=== PATIENT | male | born 1945 | race Caucasian/White ===

== ENCOUNTER 2020-07-15 09:28 | Emergency (ER) | payer MEDICARE, OTHER ==
[~2020-07-15] VITALS: Ht 172.7 cm; Wt 57.1 kg
[~2020-07-15 09:28] MED LIST: ASPI325T17 PO; ATEN25TA PO; INDO25CA22 PO; ISOS20TA3 PO; LOVA40TA2 PO
[2020-07-15 09:36] VITALS: BP 146/77
[2020-07-15] MEDS ORDERED: PHENYLEPHRINE NASAL 1%, 15ML SPRAY ONE (09:52)
[2020-07-15] MEDS ORDERED: LIDOCAINE-MPF 1%, 5ML ONE (09:52)
[2020-07-15] MEDS ORDERED: SILVER NITRATE STICK TP ONE (09:58)
--- NOTE | 2020-07-15 10:55 | NUR ---
PT AMBULATED ED HALLWAY'S WITH NO NEW EPITAXIS.
== END 2020-07-15 11:09 | disposition home or self-care (01) ==
LOC: ED 10:57
DX: R04.0 Epistaxis (principal); I10 Essential (primary) hypertension
CPT/HCPCS: 30901; 99284

== ENCOUNTER 2020-07-28 09:38 | Emergency (ER) | payer MEDICARE ==
[~2020-07-28] VITALS: Ht 172.7 cm; Wt 57.5 kg
[2020-07-28 09:41] VITALS: BP 180/72
[2020-07-28] MEDS ORDERED: TRANEXAMIC ACID 100 MG/ML, 10ML ONE (09:59)
[2020-07-28] MEDS ORDERED: PHENYLEPHRINE NASAL 1%, 15ML SPRAY ONE (10:00)
[2020-07-28] MEDS ORDERED: TRANEXAMIC ACID 100 MG/ML, 10ML TP ONE (10:00)
[2020-07-28] MEDS ORDERED: PHENYLEPHRINE NASAL 0.25%, 15ML SPRAY NAS ONE (10:00)
--- NOTE | 2020-07-28 10:03 | NUR ---
PT TO RM 43 A THIS TIME, ERMD IN TO EVAL PT
[2020-07-28] MEDS ORDERED: SILVER NITRATE STICK TP ONE (10:42)
--- NOTE | 2020-07-28 11:03 | NUR ---
CH[facility] IN WITH PT, SILVER NITRATE PROVIDED TO
== END 2020-07-28 11:30 | disposition home or self-care (01) ==
LOC: ED 09:50
DX: R04.0 Epistaxis (principal); I10 Essential (primary) hypertension; Z87.891 Personal history of nicotine dependence
CPT/HCPCS: 30901; 99284

== ENCOUNTER 2020-07-31 07:49 | Emergency (ER) | payer MEDICARE ==
[~2020-07-31] VITALS: Ht 172.7 cm; Wt 57.8 kg
[2020-07-31 07:52] VITALS: BP 125/70
[2020-07-31] MEDS ORDERED: TRANEXAMIC ACID 1,000 MG in SODIUM CHLORIDE 0.9% 100 ML IVPB ONE (08:00)
[2020-07-31] MEDS ORDERED: OXYMETAZOLINE NASAL SPRAY 0.05%, 15ML NAS ONE (08:00)
[2020-07-31] MEDS ORDERED: OXYMETAZOLINE NASAL SPRAY 0.05%,30ML ONE ×2 (08:06→08:14)
[2020-07-31] MEDS ORDERED: TRANEXAMIC ACID 100 MG/ML, 10ML ONE ×2 (08:06→09:16)
[2020-07-31] MEDS ORDERED: TRANEXAMIC ACID 100 MG/ML, 10ML TP ONE ×2 (08:30→09:30)
--- NOTE | 2020-07-31 09:00 | NUR ---
PT SITTING IN CHAIR AWAKE & COMFOTABLE, RESPONDS APPROP TO STAFF, NAD, COMFORT MEASURES PROVIDED, CALL LIGHT WITHIN REACH.
[2020-07-31] MEDS ORDERED: SILVER NITRATE STICK TP ONE ×2 (09:16→09:30)
[2020-07-31] MEDS ORDERED: LIDOCAINE 1%-EPI 1:100K, 20ML INFIL ONE (09:30)
--- NOTE | 2020-07-31 10:04 | NUR ---
Patient given discharge instructions and Rx, they have confirmed that they understand the instructions. Patient ambulatory with steady gait.
--- NOTE | 2020-07-31 10:04 | NUR ---
Tala bauer in ED - 07/31/20 at 1006 by DIMAS PT SITTING IN CHAIR AWAKE & COMFOTABLE, RESPONDS APPROP TO STAFF, NAD, COMFORT MEASURES PROVIDED, CALL LIGHT WITHIN REACH.
== END 2020-07-31 10:19 | disposition home or self-care (01) ==
LOC: ED 08:06
DX: R04.0 Epistaxis (principal); I10 Essential (primary) hypertension
CPT/HCPCS: 30901; 99284

== ENCOUNTER 2020-08-02 06:46 | Emergency (ER) | payer MEDICARE ==
[~2020-08-02] VITALS: Ht 172.7 cm; Wt 59.2 kg
[2020-08-02 06:48] VITALS: BP 107/55
[2020-08-02] MEDS ORDERED: NEOSPORIN OINT. PKT 1 PACKET ONE (07:05)
--- NOTE | 2020-08-02 07:06 | NUR ---
ERP to bedside to remove nose packing from L nare.
== END 2020-08-02 07:15 | disposition home or self-care (01) ==
LOC: ED 07:07
DX: T17.1XXA Foreign body in nostril, initial encounter (principal); R04.0 Epistaxis; I10 Essential (primary) hypertension; X58.XXXA Exposure to other specified factors, initial encounter; Y93.89 Activity, other specified; Y92.89 Other specified places as the place of occurrence of the external cause; Y99.8 Other external cause status
CPT/HCPCS: 99282